=== PATIENT | female | born 1955 | race Caucasian/White ===

== ENCOUNTER 2017-02-02 11:15 | Inpatient (IN) | payer OTHER ==
[~2017-02-02] VITALS: Ht 165.1 cm; Wt 59.1 kg
[2017-02-02 12:29] LABS: BASOPHIL % 0.2 % (0-2); PLATELET COUNT 197 x10^3mcL (130-400); RED CELL DISTRIBUTION WIDTH 12.8 % (11.5-14.5)
[2017-02-02 12:34] LABS: CALCIUM 9.3 mg/dL (8.5-10.1); CARBON DIOXIDE 25.3 mmol/L (21-32); CHLORIDE SERUM 105 mmol/L (98-107); CREATININE SERUM 0.7 mg/dL (0.6-1.0); GFR1 > 60 mL/min; GLUCOSE SERUM 123 mg/dL (74-106); POTASSIUM SERUM 3.8 mmol/L (3.5-5.1); SODIUM SERUM 139 mmol/L (136-145)
[2017-02-02 12:38] LABS: ALBUMIN 3.8 g/dL (3.4-5.0); ALKALINE PHOSPHATASE 114 U/L (46-116); ALT/SGPT 108 U/L (14-59); AST/SGOT 148 U/L (15-37); BILIRUBIN TOTAL 0.72 mg/dL (0.20-1.00); TOTAL PROTEIN, SERUM 7.5 g/dL (6.4-8.2)
[2017-02-02] MEDS ORDERED: LIPI10 PO (14:02)
[2017-02-02] MEDS ORDERED: ASPIR 8181 MG PO (14:03)
[2017-02-02] MEDS ORDERED: RANITIDINE HCL150 M1 PO (14:03)
[2017-02-02 14:47] LABS: CHOLESTEROL/HDL RATIO 3.1; PHOSPHOROUS 2.1 mg/dL (2.5-4.9)
[2017-02-02 14:49] LABS: T3 TOTAL 1.18 ng/mL
[2017-02-02 15:01] LABS: FREE T4 1.16 ng/dL (0.76-1.46); FREE THYROXINE INDEX 3.3 ug/dL (1.4-4.5); T4(THYROXINE) 10.1 ug/dL (4.7-13.3)
[2017-02-02 15:43] VITALS: BP 129/56
[2017-02-02 15:45] VITALS: Ht 165.1 cm; Wt 59.1 kg
[2017-02-02] MEDS ORDERED: Z PO (16:03)
[2017-02-02 17:02] LABS: UA SPECIFIC GRAVITY 1.015 (1.005-1.035); microscopic required? YES; urine erythrocyte TRACE (NEGATIVE)
[2017-02-02 17:11] LABS: AMPHETAMINE QUAL UR NONE DETECTED (NEG <=1000)
[2017-02-02 17:26] VITALS: BP 151/61
[2017-02-02 21:31] VITALS: BP 110/73
[2017-02-03 05:42] VITALS: BP 121/62
[2017-02-03 06:36] LABS: CALCIUM 8.4 mg/dL (8.5-10.1); CARBON DIOXIDE 25.4 mmol/L (21-32); CHLORIDE SERUM 110 mmol/L (98-107); CREATININE SERUM 0.6 mg/dL (0.6-1.0); GFR1 > 60 mL/min; GLUCOSE SERUM 89 mg/dL (74-106); POTASSIUM SERUM 4.3 mmol/L (3.5-5.1); SODIUM SERUM 144 mmol/L (136-145)
[2017-02-03 06:38] LABS: BASOPHIL % 0.4 % (0-2); PLATELET COUNT 168 x10^3mcL (130-400); RED CELL DISTRIBUTION WIDTH 12.4 % (11.5-14.5)
[2017-02-03 09:14] VITALS: BP 124/46
[2017-02-03 13:50] VITALS: BP 107/45
[2017-02-03 17:20] VITALS: BP 128/44
[2017-02-03 21:29] VITALS: BP 111/46
[2017-02-04 05:46] VITALS: BP 125/70
[2017-02-04 06:24] LABS: CALCIUM 8.6 mg/dL (8.5-10.1); CARBON DIOXIDE 27.6 mmol/L (21-32); CHLORIDE SERUM 112 mmol/L (98-107); CREATININE SERUM 0.6 mg/dL (0.6-1.0); GFR1 > 60 mL/min; GLUCOSE SERUM 84 mg/dL (74-106); POTASSIUM SERUM 4.6 mmol/L (3.5-5.1); SODIUM SERUM 144 mmol/L (136-145)
[2017-02-04 06:35] LABS: BASOPHIL % 0.7 % (0-2); PLATELET COUNT 158 x10^3mcL (130-400); RED CELL DISTRIBUTION WIDTH 12.5 % (11.5-14.5)
[2017-02-04 08:55] LABS: BILIRUBIN DIRECT 0.11 mg/dL (0.0-0.2); BILIRUBIN TOTAL 0.38 mg/dL (0.20-1.00); TOTAL PROTEIN, SERUM 6.2 g/dL (6.4-8.2)
[2017-02-04 10:00] VITALS: BP 120/60
[2017-02-04 10:52] VITALS: BP 107/60
[2017-02-04 13:51] VITALS: BP 110/54
[2017-02-04 17:49] VITALS: BP 129/51
[2017-02-04 21:28] VITALS: BP 112/48
[2017-02-05 06:10] VITALS: BP 123/69
[2017-02-05 06:55] LABS: BASOPHIL % 0.6 % (0-2); PLATELET COUNT 165 x10^3mcL (130-400); RED CELL DISTRIBUTION WIDTH 12.7 % (11.5-14.5)
[2017-02-05 07:04] LABS: CALCIUM 9.2 mg/dL (8.5-10.1); CARBON DIOXIDE 26.6 mmol/L (21-32); CHLORIDE SERUM 109 mmol/L (98-107); CREATININE SERUM 0.6 mg/dL (0.6-1.0); GFR1 > 60 mL/min; GLUCOSE SERUM 87 mg/dL (74-106); POTASSIUM SERUM 4.2 mmol/L (3.5-5.1); SODIUM SERUM 144 mmol/L (136-145)
[2017-02-05 10:44] VITALS: BP 126/74
[2017-02-05 12:57] VITALS: BP 126/74
[2017-02-05 14:20] VITALS: BP 121/70
== END 2017-02-05 16:33 | disposition home or self-care (01) | DRG 391 ==
LOC: ED 11:15 → DU 13:35 → MU 02-05 09:56
PROVIDERS: Emergency Medicine Emergency Medical Services; Internal Medicine Gastroenterology; ADMIT Family Medicine
PROC: 0DB68ZX Excision of Stomach, Via Natural or Artificial Opening Endoscopic, Diagnostic (ICD-10-PCS; principal; 2017-02-04 09:00)
DX: K29.70 Gastritis, unspecified, without bleeding (principal); N17.0 Acute kidney failure with tubular necrosis; R74.0 Nonspecific elevation of levels of transaminase and lactic acid dehydrogenase [LDH]; E78.5 Hyperlipidemia, unspecified; E83.39 Other disorders of phosphorus metabolism; R80.9 Proteinuria, unspecified; Z68.23 Body mass index [BMI] 23.0-23.9, adult; Z90.49 Acquired absence of other specified parts of digestive tract; K21.9 Gastro-esophageal reflux disease without esophagitis; K27.9 Peptic ulcer, site unspecified, unspecified as acute or chronic, without hemorrhage or perforation
CPT/HCPCS: 43235; 74181; 82962; 83880; 84439; 85378; J1200; J1610; J1885; J2250; J2270; J2310; J2405; J3010; J3490; J7030; Q0092